=== PATIENT | female | born 1970 | race African-American/Black ===

== ENCOUNTER 2016-06-20 01:00 | Emergency (ER) | payer SELFPAY ==
[~2016-06-20] VITALS: Ht 154.9 cm; Wt 85.0 kg
[2016-06-20 01:04] VITALS: BP 134/76; PULSE 90; RESP 18; TEMP 98.3; O2SAT 95
[2016-06-20 03:35] VITALS: BP 102/69; PULSE 76; RESP 18; O2SAT 98
[2016-06-20] MEDS ORDERED: SODIUM CHLOR 0.9% 1000 ML INJ 1,000 ML IV ONE (04:00)
[2016-06-20 04:26] LABS: AUTOMATED NEUTROPHIL # 4.1 TH/MM3 (1.8-7.7); BASOPHIL % 0.1 % (0.0-2.0); EOSINOPHIL # 0.2 TH/MM3 (0-0.4); HEMATOCRIT 37.9 % (35.0-46.0); HEMO FLAGS DIFF FINAL; LYMPH % 41.7 % (9.0-44.0); LYMPHOCYTE # 3.3 TH/MM3 (1.0-4.8); MEAN CORPUSCULAR HEMOGLOBIN 27.8 PG (27.0-34.0); MEAN CORPUSCULAR HGB CONC 33.1 % (32.0-36.0); NEUT % 51.2 % (16.0-70.0); PLATELET COUNT 230 TH/MM3 (150-450); RED BLOOD COUNT 4.52 MIL/MM3 (4.00-5.30); RED CELL DISTRIBUTION WIDTH 14.1 % (11.6-17.2)
[2016-06-20 04:47] LABS: BICARBONATE 26.9 MEQ/L (21.0-32.0); POTASSIUM 3.4 MEQ/L (3.5-5.1)
[2016-06-20 04:51] LABS: BETA HCG QUANT 2 MIU/ML (0-5)
--- NOTE | 2016-06-20 04:53 | PD ---
HPI Chief Complaint: Alcohol/Drug Intoxication Time Seen by Provider: 02:21 Travel History International Travel<30 days: No Contact w/Intl Traveler<30days: No Traveled to known affect area: No History of Present Illness HPI 45-year-old female was brought in for alcohol intoxication and poor responsiveness. She was in a hotel staying with her and after drinking alcohol she lost balance and fell and hit her head. Because she was so intoxicated and unable to verbalize the hotel staff thought it was important that she was checked out at the emergency room. When I went to examine her she was significantly sedated and did not respond much to sternal rub. Vital signs were stable however. Given her state she was not a reliable historian. [facility] Past Medical History Narrative Medical Unknown Medical History: Unable to Obtain ?: Not Tubal Ligation: Yes Past Surgical History Hysterectomy: Yes Social History Alcohol Use: Yes Tobacco Use: No Substance Use: No Allergies-Medications (Allergen,Severity, Reaction): Coded Allergies: No Known Allergies (Unverified , 06/20/16) Comments No known allergies Reported Meds & Prescriptions Reported Meds & Active Scripts Active No Active Prescriptions or Reported Medications Narrative Medication Unknown Review of Systems ROS Limitations: Intoxication Except as stated in HPI: all other systems reviewed are Neg Physical Exam Narrative GENERAL: Poorly responsive, alcohol intoxication SKIN: Warm and dry. HEAD: Atraumatic. Normocephalic. EYES: Pupils equal and round. No scleral icterus. No injection or drainage. ENT: No nasal bleeding or discharge. Mucous membranes pink and moist. NECK: Trachea midline. No JVD. CARDIOVASCULAR: Regular rate and rhythm. No murmur appreciated. RESPIRATORY: No accessory muscle use. Clear to auscultation. Breath sounds equal bilaterally. GASTROINTESTINAL: Abdomen soft, non-tender, nondistended. Hepatic and splenic margins not palpable. MUSCULOSKELETAL: No obvious deformities. No clubbing. No cyanosis. No edema. NEUROLOGICAL: GCS of 8 PSYCHIATRIC: Appropriate mood and affect; insight and judgment normal. Data Data Last Documented VS Orders Complete Blood Count With Diff (06/20/16 03:44) Basic Metabolic Panel (Bmp) (06/20/16 03:44) Alcohol (Ethanol) (06/20/16 03:44) Ct Brain W/O Iv Contrast(Rout) (06/20/16 ) Ct Cerv Spine W/O Contrast (06/20/16 ) Beta Hcg (Quant/Titer) (06/20/16 03:46) Sodium Chlor 0.9% 1000 Ml Inj (Ns 1000 M (06/20/16 04:00) Labs Laboratory Tests Test 06/20/16 03:45 White Blood Count 8.0 TH/MM3 Red Blood Count 4.52 MIL/MM3 Hemoglobin 12.6 GM/DL Hematocrit 37.9 % Mean Corpuscular Volume 84.0 FL Mean Corpuscular Hemoglobin 27.8 PG Mean Corpuscular Hemoglobin 33.1 % Concent Red Cell Distribution Width 14.1 % Platelet Count 230 TH/MM3 Mean Platelet Volume 8.0 FL Neutrophils (%) (Auto) 51.2 % Lymphocytes (%) (Auto) 41.7 % Monocytes (%) (Auto) 5.0 % Eosinophils (%) (Auto) 2.0 % Basophils (%) (Auto) 0.1 % Neutrophils # (Auto) 4.1 TH/MM3 Lymphocytes # (Auto) 3.3 TH/MM3 Monocytes # (Auto) 0.4 TH/MM3 Eosinophils # (Auto) 0.2 TH/MM3 Basophils # (Auto) 0.0 TH/MM3 CBC Comment DIFF FINAL Differential Comment Sodium Level 148 MEQ/L Potassium Level 3.4 MEQ/L Chloride Level 111 MEQ/L Carbon Dioxide Level 26.9 MEQ/L Anion Gap 10 MEQ/L Blood Urea Nitrogen 10 MG/DL Creatinine 0.82 MG/DL Estimat Glomerular Filtration 75 ML/MIN Rate Random Glucose 102 MG/DL Calcium Level 8.2 MG/DL Human Chorionic Gonadotropin, 2 MIU/ML Quant Ethyl Alcohol Level 259 MG/DL [facility] Medical Decision Making Medical Screen Exam Complete: Yes Emergency Medical Condition: Yes Medical Record Reviewed: Yes Differential Diagnosis Intracranial bleed, cervical fracture, alcohol poisoning Narrative Course 6:07 AM patient is wide awake at this point. Her alcohol level was significantly high. Rest of the blood test showed hypernatremic dehydration. Patient was given a liter of IV fluid bolus. CT scan of her head and C-spine are negative. If patient has a family to come and pick her up she could be discharged. Procedures EKG Prior to Arrival: No Diagnosis Primary Impression: Acute alcohol intoxication Qualified Code: F10.129 - Acute alcohol intoxication, with unspecified complication Additional Impression: Head injury Qualified Code: S09.90XA - Head injury, initial encounter Referrals: Primary Care Physician 3 days Additional Instructions: Please return to the ER if the condition worsens or any other new concerns. Otherwise follow-up with your primary care. Drink alcohol in moderation. Med/Other Pt SpecificInfo: No Change to Meds Scripts No Active Prescriptions or Reported Meds Disposition: DISCHARGE HOME Condition: Rosalina Cotto MD Jun 20, 2016 04:53 Please return to the ER if the condition worsens or any other new concerns. Otherwise follow-up with your primary care. Drink alcohol in moderation. Med/Other Pt SpecificInfo: No Change to Meds Scripts No Active Prescriptions or Reported Meds Disposition: DISCHARGE HOME Condition: Rosalina Cotto MD Jun 20, 2016 04:53
--- NOTE | 2016-06-20 05:51 | RADRPT ---
EXAM DATE/TIME: 06/20/2016 05:33 [facility] COMPARISON: No previous studies available for comparison. INDICATIONS : Trauma, hit head. RADIATION DOSE: 29.95 CTDIvol (mGy) MEDICAL HISTORY : None SURGICAL HISTORY : Tubal ligation. Hysterectomy. ENCOUNTER: Initial ACUITY: 1 day PAIN SCALE: 6/10 LOCATION: cranial TECHNIQUE: Multiple contiguous axial images were obtained of the head. Using automated exposure control and adj ustment of the mA and/or kV according to patient size, radiation dose was kept as low as reasonably a chievable to obtain optimal diagnostic quality images. FINDINGS: CEREBRUM: The ventricles are normal for age. No evidence of midline shift, mass lesion, hemorrhage or acute in farction. No extra-axial fluid collections are seen. POSTERIOR FOSSA: The cerebellum and brainstem are intact. The 4th ventricle is midline. The cerebellopontine angle i s unremarkable. EXTRACRANIAL: The visualized portion of the orbits is intact. SKULL: The calvaria is intact. No evidence of skull fracture. CONCLUSION: Normal examination for a patient of this age. Silvio Raymundo MD on June 20, 2016 at 5:45 Board Certified Radiologist. This report was verified electronically.
--- NOTE | 2016-06-20 05:54 | RADRPT ---
EXAM DATE/TIME: 06/20/2016 05:33 [facility] COMPARISON: No previous studies available for comparison. INDICATIONS : Trauma, fell and hit head. RADIATION DOSE: 20.21 CTDIvol (mGy) MEDICAL HISTORY : None SURGICAL HISTORY : Tubal ligation. Hysterectomy.Cervical fusion C6-C7. ENCOUNTER: Initial ACUITY: 1 day PAIN SCALE: 2/10 LOCATION: neck TECHNIQUE: Volumetric scanning of the cervical spine was performed. Multiplanar reconstructions in the sagittal, coronal and oblique axial planes were performed. Using automated exposure control and adjustment o f the mA and/or kV according to patient size, radiation dose was kept as low as reasonably achievable to obtain optimal diagnostic quality images. FINDINGS: Postoperative fusion noted at C6-7. Moderate degenerative disc disease at C5-6. No fracture or spondy lolisthesis. No prevertebral soft tissue swelling. CONCLUSION: 1. No acute findings. Previous fusion at C6-7 with solid bony union. Silvio Raymundo MD on June 20, 2016 at 5:50 Board Certified Radiologist. This report was verified electronically.
== END 2016-06-20 06:56 | disposition home or self-care (01) ==
LOC: NEPC 01:00
DX: F10.129 Alcohol abuse with intoxication, unspecified (principal); S09.90XA Unspecified injury of head, initial encounter; W19.XXXA Unspecified fall, initial encounter; Y93.9 Activity, unspecified; Y92.59 Other trade areas as the place of occurrence of the external cause; Y90.8 Blood alcohol level of 240 mg/100 ml or more
CPT/HCPCS: 70450; 72125; 80048; 80307; 84702; 85025; 96360; 99284; J7030